=== PATIENT | female | born 1970 | race Caucasian/White ===

== ENCOUNTER 2020-10-02 15:47 | Emergency (ER) | payer OTHER ==
[2020-10-02 17:05] LABS: HEMOGLOBIN 13.8 gm/dl (12.3-15.3); RED BLOOD COUNT 4.88 M/UL (4.00-5.10); WHITE BLOOD COUNT 7.5 K/UL (4.5-11.0)
[2020-10-02 17:26] LABS: BUN/CREATININE RATIO 16 (0-10)
[2020-10-02] MEDS ORDERED: DECADRON6 MG PO (21:22)
[2020-10-02] MEDS ORDERED: ZITHROMAX250 MG PO (21:22)
== END 2020-10-02 22:11 | disposition home or self-care (01) ==
LOC: ER1 15:47
PROVIDERS: Nurse Practitioner
DX: U07.1 COVID-19 (principal); J12.82 Pneumonia due to coronavirus disease 2019; E03.9 Hypothyroidism, unspecified; Z79.899 Other long term (current) drug therapy
CPT/HCPCS: 71045; 80053; 82728; 83605; 83615; 84484; 85025; 85379; 86140; 93005; 96374; 96375; 99285; J1885; J2405; M0239